=== PATIENT | female | born 1980 | race Caucasian/White ===

== ENCOUNTER 2021-03-09 08:51 | Outpatient (RCR) | payer OTHER, SELFPAY ==
[2021-03-09] MEDS: RHO(D) IMMUNE GLOBULIN 300 MCG/2 ML SYRINGE IM (14:20)
== END 2021-03-09 09:00 | disposition home or self-care (01) ==
LOC: ANHLAB 08:51
PROVIDERS: PCP Family Medicine; Visit Provider Obstetrics & Gynecology Gynecology
DX: Z29.13 Encounter for prophylactic Rho(D) immune globulin (principal); O36.0190 Maternal care for anti-D [Rh] antibodies, unspecified trimester, not applicable or unspecified; Z3A.00 Weeks of gestation of pregnancy not specified
CPT/HCPCS: 36415; 85461; 90384; 96372; J2790

== ENCOUNTER 2021-05-10 14:02 | Outpatient (CLI) | payer BC, SELFPAY ==
[2021-05-10 14:23] VITALS: BP 122/72; PULSE 82
[2021-05-10 14:31] VITALS: BP 116/72; PULSE 78
[2021-05-10 14:42] LABS: Basophils Absolute Auto 0.1 K/mm3 (0.0-0.1); Basophils Percent Auto 0.5 % (0.2-1.2); Eosinophils Absolute Auto 0.1 K/mm3 (0-0.3); Eosinophils Percent Auto 0.9 % (0-4.4); Hematocrit 35.5 % (37.0-47.0); Hemoglobin 11.9 g/dL (12.0-15.0); Immature Granulocyte Absolute 0.03 K/mm3 (0.00-0.031); Immature Granulocyte Percent A 0.3 % (0-0.5); Lymphocytes Absolute Auto 2.34 K/mm3 (0.9-3.2); Lymphocytes Percent Auto 23.6 % (18.3-44.2); Mean Corpuscular HGB Conc 33.5 g/dl (32-36); Mean Corpuscular Hemoglobin 28.8 pg (26-34); Mean Platelet Volume 10.4 fl (7.4-10.4); Monocytes Absolute Auto 0.9 K/mm3 (0.1-0.6); Neutrophils Absolute Auto 6.5 K/mm3 (1.3-6.7); Neutrophils Percent Auto 65.7 % (45.5-73.1); Platelet Count Result 181 k/mm3 (150-375); Red Blood Count 4.13 M/mm3 (4.2-5.4); Red Cell Distribution Width 14.7 % (11.5-14.5); White Blood Count 9.9 K/mm3 (4.5-10.0)
[2021-05-10 14:49] LABS: Creatinine Urine 68.5 mg/dL; Total Protein Urine Random 7 mg/dL
[2021-05-10 14:51] LABS: Add Urine Microscopic? YES; Alanine Aminotransferase 53 U/L (4-35); Albumin Level 3.8 g/dL (3.5-5.1); Alkaline Phosphatase 156 U/L (38-126); Anion Gap 5 mmol/L (8-16); Appearance Urine Clear (Clear); Aspartate Amino Transferase 29 U/L (14-36); Bacteria Urine Trace /hpf; Bilirubin Urine Negative (Negative); Bilirubin,Total 0.4 mg/dL (0.2-1.3); Blood Urea Nitrogen 12 mg/dL (7-17); Blood Urine Negative (Negative); Calcium 8.7 mg/dL (8.4-10.2); Carbon Dioxide 23 mmol/L (22-30); Chloride 106 mmol/L (98-107); Color Urine Yellow (Yellow); Estimated Glomerular Filt Rate > 60; Glucose 83 mg/dL (65-110); Glucose Urine UA Negative (Negative); Ketones Urine Negative (Negative); Leukocyte Esterase Ur 2+ LEU/UL (NEGATIVE); Mucus Urine Rare /lpf; Nitrate Urine Negative (Negative); Potassium 3.8 mmol/L (3.4-5.0); Protein Urine Negative (Negative); RBC Urine 0-2 /hpf (0-2); Sodium 134 mmol/L (137-145); Specific Grav Ur 1.013 (1.001-1.035); Squamous Epithelial Cell Urine Few /hpf (Few); Uric Acid 3.7 mg/dL (2.5-7.5); Urobilinogen Urine Negative mg/dL (<2.0); WBC Urine 0-3 /hpf (0-3)
[2021-05-10 15:01] VITALS: BP 114/69; PULSE 71
[2021-05-10 15:26] VITALS: BP 122/72; PULSE 82
== END 2021-05-10 15:15 | disposition home or self-care (01) ==
LOC: ANHOBOP 14:07 → ANHOBPP 14:09
PROVIDERS: PCP Family Medicine; Visit Provider Obstetrics & Gynecology Gynecology
DX: O13.9 Gestational [pregnancy-induced] hypertension without significant proteinuria, unspecified trimester (principal)
CPT/HCPCS: 36415; 59025; 80053; 81001; 82570; 84156; 84550; 85025; 87086; 87088; 99199

== ENCOUNTER 2021-05-16 06:01 | Inpatient (IN) | payer BC, SELFPAY ==
[2021-05-16] VITALS (109 sets, daily range): BP systolic 81–142; BP diastolic 24–91; PULSE 68–121; RESP 16; TEMP 36.7–37.6; O2SAT 96–100; BMI 37.4
[2021-05-16] MEDS: LACTATED RINGERS 1,000 ML 125 ML IV CONT (07:06)
[2021-05-16 07:09] LABS: Basophils Absolute Auto 0.1 K/mm3 (0.0-0.1); Basophils Percent Auto 0.7 % (0.2-1.2); Eosinophils Absolute Auto 0.1 K/mm3 (0-0.3); Eosinophils Percent Auto 0.9 % (0-4.4); Hemoglobin 12.5 g/dL (12.0-15.0); Immature Granulocyte Absolute 0.03 K/mm3 (0.00-0.031); Immature Granulocyte Percent A 0.3 % (0-0.5); Lymphocytes Percent Auto 22.8 % (18.3-44.2); Mean Corpuscular HGB Conc 33.8 g/dl (32-36); Mean Corpuscular Hemoglobin 29.3 pg (26-34); Mean Corpuscular Volume 86.7 fl (80-100); Mean Platelet Volume 10.5 fl (7.4-10.4); Monocytes Absolute Auto 0.8 K/mm3 (0.1-0.6); Monocytes Percent Auto 8.3 % (2.6-8.5); Neutrophils Absolute Auto 6.2 K/mm3 (1.3-6.7); Platelet Count Result 177 k/mm3 (150-375); Red Blood Count 4.27 M/mm3 (4.2-5.4); White Blood Count 9.2 K/mm3 (4.5-10.0)
[2021-05-16] MEDS: OXYTOCIN 30 UNITS/NS 500 ML 30 UNITS/500 ML BAG IV CONT (07:20)
--- NOTE | 2021-05-16 07:32 | WPDOBADMIT ---
Obstetrics - Admit Note Admission Note: record reviewed. No pertinent additions to the history and/or any subsequent changes in the physical findings that are not consistent with the expected course of the were found. Additions to the history and/or subsequent changes in the physical findings follow. Here for MIL at 39 wks. Cervix 3/50/-2 posterior Vertex. AROM with clear fluid. FHTs reactive
--- NOTE | 2021-05-16 08:08 | LDADM ---
This patient, Lisa Rowan, was admitted to Labor/Delivery/Recovery 108 on 05/16/21 at 06:01. Plans for labor, pain management and were discussed with patient. Patient/family oriented to hospital policies and general routines including ID bracelet, bed and alarms, visiting hours, pain management, procedures, bathroom and other care routines, personal items, smoking policy, room service/diet and guest tray routines, security routines, and visiting hours. Patient/Family are encouraged to report perceived risks to care and to ask questions if they do not understand what they are told or what they should do. See OBIX for further documentation.
[2021-05-16] MEDS: LACTATED RINGERS 1,000 ML 999 ML IV CONT ×2 (10:09→12:26)
--- NOTE | 2021-05-16 10:33 | WPDANESEPPF ---
Anes - Initial Pre Proc Eval Procedure: labor epidural Date/Time: 05/16/21 10:33 Surgeon: Ml Rosenbaum MD Pre Op Diagnosis: labor pain Pre Op Diagnosis: iol Patient Data Age: 40 Gender: F Height: 1.57 m Weight: 92.8 kg Last Vital Signs Temp 37.3 C 05/16/21 10:00 Pulse 72 05/16/21 10:31 BP 122/64 05/16/21 10:31 Pulse Ox 100 05/16/21 10:30 Allergies Allergy/AdvReac Type Severity Reaction Status Date / Time No Known Allergies Allergy Verified 03/09/21 14:18 Home Medications Medication Instructions Recorded Confirmed Type ferrous sulfate [Slow Fe] 47.5 mg PO DAILY 04/20/21 04/20/21 History [id number] fum-folic ac-om3 1 pkg PO DAILY 04/20/21 04/20/21 History [Daily ] ergocalciferol (vitamin D2) 50,000 unit PO WEEKLY 05/16/21 05/16/21 History Laboratory Tests 05/16/21 05/16/21 05/16/21 06:54 06:54 06:54 WBC 9.2 K/mm3 K/mm3 (4.5-10.0) RBC 4.27 M/mm3 M/mm3 (4.2-5.4) Hgb 12.5 g/dL g/dL (12.0-15.0) Hct 37.0 % % (37.0-47.0) MCV 86.7 fl fl (80-100) MCH 29.3 pg pg (26-34) MCHC 33.8 g/dl g/dl (32-36) RDW 15.0 % H % (11.5-14.5) Plt Count 177 k/mm3 k/mm3 (150-375) MPV 10.5 fl H fl (7.4-10.4) Immature Gran % (Auto) 0.3 % % (0-0.5) Neut % (Auto) 67.0 % % (45.5-73.1) Lymph % (Auto) 22.8 % % (18.3-44.2) [place]itus % (Auto) 8.3 % % (2.6-8.5) Eos % (Auto) 0.9 % % (0-4.4) Baso % (Auto) 0.7 % % (0.2-1.2) Lymph # (Auto) 2.10 K/mm3 K/mm3 (0.9-3.2) Titus # (Auto) 0.8 K/mm3 H K/mm3 (0.1-0.6) Eos # (Auto) 0.1 K/mm3 K/mm3 (0-0.3) Baso # (Auto) 0.1 K/mm3 K/mm3 (0.0-0.1) Abs Immat Gran (auto) 0.03 K/mm3 K/mm3 (0.00-0.031) Absolute Neuts (auto) 6.2 K/mm3 K/mm3 (1.3-6.7) Absolute Nucleated RBC 0.0 K/mm3 K/mm3 (0.0-0.012) Nucleated RBC % 0.0 % % (0.0-0.2) RPR Pending Blood Type O Negative Antibody Screen Negative Patient hx anesthesia problems: none Family hx anesthesia problems: none Results Review: All pre-operative results and documents have been reviewed as part of the pre-operative evaluation. [facility] Family History Family History (Updated 04/20/21 @ 14:37 by Lily Grant RN) Mother Diabetes mellitus Sibling Heart valve problem Social History Social History Smoking status: Never smoker Second hand tobacco smoke exposure: No Substance use: never Spiritual care concerns: No Anes - Eval Final PreProcedure Day of Procedure 05/16/21 10:33 Patient weight: obese ASA classification: II Anesthetic plan: proceed Anesthesia type and monitoring: regional epidural and standard monitoring Results Review: All pre-operative results and documents have been reviewed as part of the pre-operative evaluation. Informed Consent: The patient's anesthetic plan and its attendant risks and benefits were discussed with the patient/family/POA. Questions were solicited and answers provided to the satisfaction of the patient/family/POA.
--- NOTE | 2021-05-16 14:08 | PM.OBPRVD ---
OB - Delivery Note Procedure Delivery date: 05/16/21 Procedure: Induction method: AROM and Per Pitocin Protocol Delivery monitor: External FHT and Internal Uterine Route of delivery: Laceration Description: None Specimen: No Quantitative Blood Loss (ml): 100 Anesthesia type: Epidural Disposition: floor Baby Date of : 05/16/21 Weeks of gestation at delivery: 39 Infant gender: Male presentation: vertex position: Right Occiput Anterior Placenta delivery description: Spontaneous Cord Vessel Description: 3 Vessels score one minute: 9 score five minutes: 9
--- NOTE | 2021-05-16 14:09 | P.DS_ITS ---
DS: Admitting Diagnosis Discharge Date 05/17/21 Admitting Diagnosis IUP 39 wks for HYACINTH DS: Discharge Diagnosis Discharge Diagnosis (1) (normal spontaneous vaginal delivery): Code(s): O80 - Encounter for full-term uncomplicated delivery Status: Acute OB - DS: Summary OB Procedures : Ultrasound OB Procedures Intrapartum: Spontaneous Vag Delivery OB Procedures: : None Peripartum Data Infant Delivery Method: Natural Vaginal Laceration Description: None complications: none Status at Discharge Functional status at discharge: independent ambulation Overall status at discharge: patient is progressing back to baseline Time Spent with Patient Time attestation: Total time spent providing and/or coordinating discharge services: DS: Data Data Completed and Pending Labs on day of discharge: Labs from last 24 hours 05/16/21 05/16/21 05/16/21 06:54 06:54 06:54 WBC 9.2 RBC 4.27 Hgb 12.5 Hct 37.0 MCV 86.7 MCH 29.3 MCHC 33.8 RDW 15.0 H Plt Count 177 MPV 10.5 H Immature Gran % (Auto) 0.3 Neut % (Auto) 67.0 Lymph % (Auto) 22.8 [place] % (Auto) 8.3 Eos % (Auto) 0.9 Baso % (Auto) 0.7 Lymph # (Auto) 2.10 [place] # (Auto) 0.8 H Eos # (Auto) 0.1 Baso # (Auto) 0.1 Abs Immat Gran (auto) 0.03 Absolute Neuts (auto) 6.2 Absolute Nucleated RBC 0.0 Nucleated RBC % 0.0 RPR Pending Blood Type O Negative Antibody Screen Negative Discharge Plan Discharge Attending physician on discharge: Ml Rosenbaum Discharging Clinician: Ml Rosenbaum Anticipated Discharge Date/Time: 05/17/21 14:10 Patient Disposition: Home, Self-Care Activity: may shower and pelvic rest Diet: regular Patient Instructions: Antibiotic Form Stand Alone Forms: General Discharge Information Follow-up/Referrals: Ml Rosenbaum MD [Physician] - 6 Weeks Discharge Medications: Continued Daily [phone] mg-mcg-mg Combo Pack 1 pkg PO DAILY RF: 0 ergocalciferol (vitamin D2) 1,250 mcg (50,000 unit) capsule 50,000 unit PO WEEKLY RF: 0 Discontinued Slow Fe 47.5 mg iron Tablet Extended Release 47.5 mg PO DAILY RF: 0 Date of admission: 05/16/21 06:01 Primary Care Provider: Kwaku,Tereso Glasgow Admitting Provider: Ml Rosenbaum Attending physician on admission: Ml Rosenbaum Condition: Stable Care Plan Goals: Will schedule BTL for 6 wk
[2021-05-16] MEDS: OXYTOCIN 30 UNITS/NS 500 ML 30 UNITS/500 ML BAG 125 UNITS IV CONT (14:47)
[2021-05-16] MEDS: IBUPROFEN 600 MG TABLET PO (16:04)
--- NOTE | 2021-05-16 20:44 | OBPPTRN ---
Patient transferred to post room # 2830via wheelchair. Support person present. Oriented to unit, room, information board, rooming in, admission packet and security measures. Patient verbalizes understanding.
[2021-05-16] MEDS: FAMOTIDINE 20 MG TABLET PO (21:06)
[2021-05-17 04:30] VITALS: BP 106/71; PULSE 79; RESP 16; TEMP 36.9; O2SAT 99
[2021-05-17] MEDS: IBUPROFEN 600 MG TABLET PO (05:00)
[2021-05-17 05:35] LABS: Hematocrit 33.6 % (37.0-47.0); Hemoglobin 11.1 g/dL (12.0-15.0)
[2021-05-17 06:08] LABS: Rapid Plasma Reagin Non-Reactive (NonReactive)
--- NOTE | 2021-05-17 07:38 | PM.OBPNVD ---
OB - PN: Subj Subjective Date/time seen: 05/17/21 07:38 Patient comments: no complaints and pain well controlled baby status: doing well OB - PN: Obj Data Labs CBC & Chem 7: 05/17/21 04:50 Labs: Laboratory Results - last 24 hr 05/16/21 05/16/21 05/17/21 06:54 06:54 04:50 Hgb Hct RPR Non-reactive Blood Type O Negative O Negative Antibody Screen Negative Negative Screen Negative Baby's Blood Type O pos Baby's HERNESTO Negative Doses of RhIg Required 1 05/17/21 04:50 Hgb 11.1 L Hct 33.6 L RPR Blood Type Antibody Screen Screen Baby's Blood Type Baby's HERNESTO Doses of RhIg Required OB - PN A/P Plan day: 1 Plan: routine care, discharge home, follow up 6 weeks and other (plan ppBTL at 6 wks) Time Spent With Patient Time: Total time spent is greater than 50% in coordination of care (as documented) at patient's floor/unit and/or counseling patient: Exam : Bimanual exam- vagina & uterus: other (Uterus firm, nt @U)
[2021-05-17 07:40] VITALS: BP 122/78; PULSE 78; RESP 16; TEMP 36.8; O2SAT 100
[2021-05-17] MEDS: RHO(D) IMMUNE GLOBULIN 300 MCG/2 ML SYRINGE IM (10:56)
[2021-05-17 12:01] VITALS: BP 126/74; PULSE 80; RESP 16; TEMP 36.3; O2SAT 100
--- NOTE | 2021-05-17 13:57 | WPDANLDPN2 ---
Anes-Prog Note L&D Date/Time: 05/17/21 13:57 Comfortable throughout: labor and delivery Neuraxial method: epidural Epidural/Spinal procedure site: clean & non-tender Neuro status: Neuro function grossly intact. Cardiovascular status: normal Respiratory status: normal Airway patency: baseline Mental status: baseline Post-Op hydration status: normal Vital Signs: Last Vital Signs Temp 36.3 C L 05/17/21 12:01 Pulse 80 05/17/21 12:01 Resp 16 05/17/21 12:01 BP 126/74 05/17/21 12:01 Pulse Ox 100 05/17/21 12:01 Pain score (VAS): 0 Post-procedural complaints: none Patient feedback: Patient satisfied with anesthetic care.
--- NOTE | 2021-05-17 15:31 | PC.NURSE ---
Patient viewed the discharge video Mother & Baby Care, The First Two Weeks . Patient was given the opportunity and encouraged to ask questions. Patient verbalized understanding of information shared and has been given the mother/baby guide for home reference.
== END 2021-05-17 16:20 | disposition home or self-care (01) | DRG 807 ==
LOC: ANHLDR 14:10 → ANHOB2 19:21
PROVIDERS: Admitting Provider Obstetrics & Gynecology Gynecology; PCP Family Medicine; Visit Provider Obstetrics & Gynecology Gynecology
DX: O76 Abnormality in fetal heart rate and rhythm complicating labor and delivery (principal); Z37.0 Single live birth; Z3A.39 39 weeks gestation of pregnancy
CPT/HCPCS: 36415; 85014; 85018; 85025; 85461; 86592; 86850; 86900; 86901; 90384; A9270; J2590; J2790; J2795; J7120